=== PATIENT | female | born 1960 | race Caucasian/White ===

== ENCOUNTER 2016-06-26 15:39 | Outpatient (CLI) | payer OTHER ==
[~2016-06-26 15:39] MED LIST: ATENOLOL25 MG PO; BIOTIN5 MG PO; COQ-1010 MG PO; FISH OIL1000 M1 PO; MULTIVITAMIN1 TAB PO; NIACIN250 M1 PO; SIMVASTATIN20 MG PO
--- NOTE | 2016-06-26 16:37 | DIAGNOSTIC IMAGING REPORT ---
PROCEDURE: XR CERVICAL SPINE 4 OR 5 VIEW INDICATION: NUMBNESS,TINGLING,SHOULDER/ARM PAIN TECHNIQUE: Five views. COMPARISON: None. FINDINGS: Normal alignment without fracture. Mild to moderate degenerative changes. Moderate right C3-4, C4-5 and bilateral C6-7 foraminal stenosis. Odontoid, lateral masses of C1 and prevertebral soft tissues are normal. IMPRESSION: 1. Degenerative changes with foraminal stenosis
== END 2016-06-26 23:00 ==
LOC: XR SRH 15:39
DX: M50.30 Other cervical disc degeneration, unspecified cervical region (principal); M48.02 Spinal stenosis, cervical region

== ENCOUNTER 2016-07-06 14:00 | Outpatient (CLI) | payer OTHER ==
--- NOTE | 2016-07-06 17:24 | DIAGNOSTIC IMAGING REPORT ---
PROCEDURE: MR CERVICAL SPINE W/O CONT INDICATION: DISC DISEASE WITH FORAMINAL STENOSIS; NECK PAIN TECHNIQUE: Noncontrast T1, T2, and STIR sagittal images. T2 and gradient axial images. COMPARISON: Cervical spine x-ray 06/26/2016 FINDINGS: Normal alignment without fracture or suspicious osseous lesion. Moderate degenerative changes with multilevel disc bulging. Normal cervical cord. Paraspinal soft tissues are unremarkable. C2-3: Normal disc. Uncovertebral degenerative changes and facet arthropathy resulting in mild left foraminal stenosis. No spinal stenosis. C3-4: Mild disc bulge and uncovertebral degenerative changes resulting in moderate right and mild left foraminal stenosis. No spinal stenosis. C4-5: Mild right foraminal disc bulge/spur complex with moderate right foraminal stenosis. Mild spinal stenosis. C5-6: Moderate central disc herniation and facet arthropathy. There is moderate spinal stenosis with flattening of the cord.. No foraminal stenosis. C6-7: Moderate disc protrusion and uncovertebral degenerative changes resulting in moderate bilateral foraminal stenosis. Mild spinal stenosis. C7-T1: Normal appearance. IMPRESSION: 1. Moderate degenerative changes with multilevel disc bulging 2. Mild left C2-3, moderate right and mild left C3-4, moderate right C4-5 and moderate bilateral of foraminal stenosis 3. Mild C4-5, moderate C5-6 and mild C6-7 spinal stenosis
== END 2016-07-06 23:00 ==
LOC: MRI SRH 14:00
DX: M50.221 Other cervical disc displacement at C4-C5 level (principal); M50.222 Other cervical disc displacement at C5-C6 level; M50.223 Other cervical disc displacement at C6-C7 level

== ENCOUNTER 2016-07-06 14:05 | Outpatient (CLI) | payer OTHER ==
--- NOTE | 2016-07-06 16:01 | DIAGNOSTIC IMAGING REPORT ---
PROCEDURE: CT SINUS/FACIAL BONES W/O CONT CLINICAL INDICATION: SINUSITIS, NASAL OBSTRUCTION TECHNIQUE: Noncontrast axial CT images through the sinuses. Coronal and sagittal reformations were created. COMPARISON: None. FINDINGS: The frontal sinuses are normally aerated. The outflow tracts are patent. Sphenoid sinuses and their outflow tracts are patent. No mucosal thickening throughout the ethmoid air cells The maxillary sinuses are normally aerated with no mucosal thickening. The outflow tracts are patent. The nasal septum is midline without significant spurring. Nasal passages are patent with normal nasal turbinate morphology. There is bilateral nasal mucosal edema. No facial bone fractures. Temporomandibular joints are normally aligned. Bony orbits are intact. Orbital soft tissues appear normal. Facial soft tissues and visible glandular structures are symmetric. IMPRESSION: 1. Bilateral nasal mucosal edema consistent with rhinitis. 2. Normal sinuses. All CT scans at this facility use dose modulation, iterative reconstruction, and/or weight-based dosing when appropriate to reduce radiation dose to as low as reasonably achievable.
== END 2016-07-06 23:00 ==
LOC: CT SRH 14:05
DX: R09.81 Nasal congestion (principal)